=== PATIENT | male | born 1970 | race Caucasian/White ===

== ENCOUNTER 2022-08-24 17:17 | Emergency (ER) | payer MEDICARE, OTHER ==
[~2022-08-24] VITALS: Ht 170.2 cm; Wt 75.0 kg
[2022-08-24] MEDS ORDERED: METF-1211 PO (17:28)
[2022-08-24] MEDS ORDERED: GABA-1216 PO (17:28)
[2022-08-24] MEDS ORDERED: ASPI-1444 PO (18:59)
[2022-08-24] MEDS ORDERED: ATOR40TA71 PO (18:59)
[2022-08-24] MEDS ORDERED: IBUP-2077 PO (18:59)
[2022-08-24] MEDS ORDERED: LISI5TAB21 PO (18:59)
[2022-08-24] MEDS ORDERED: GABA-1181 PO (18:59)
[2022-08-24 21:19] LABS: BASOPHILS % (AUTO) 0.7 % (0.0-2.0); EOSINOPHILS % (AUTO) 2.5 % (1.0-6.0); HEMATOCRIT 41.9 % (41-53); HEMOGLOBIN 14.2 g/dL (13.5-17.5); LYMPHOCYTES # (AUTO) 3.5 K/uL (1.0-4.8); LYMPHOCYTES % (AUTO) 37.6 % (22.0-44.0); MEAN CORPUSCULAR HEMOGLOBIN 31.8 pg (26.0-34.0); MEAN CORPUSCULAR HGB CONC 33.9 G/dL (31.0-37.0); MEAN CORPUSCULAR VOLUME 94 fL (80-100); MONOCYTES # (AUTO) 0.6 K/uL (0.1-1.0); MONOCYTES % (AUTO) 6.7 % (2.0-9.0); NEUTROPHILS # (AUTO) 4.9 K/uL (1.8-7.7); NEUTROPHILS % (AUTO) 52.5 % (40.0-70.0); PLATELET COUNT (AUTO) 293 K/uL (150-450); RED BLOOD CELL COUNT(AUTO) 4.48 MIL/uL (4.50-5.90); RED CELL DISTRIBUTION WIDTH 12.9 % (11.5-14.5)
[2022-08-24] MEDS ORDERED: MORPHINE SULFATE 4 MG/ML SYRINGE IVP ONE (21:30)
[2022-08-24 21:31] LABS: ANION GAP 6 mmol/L (8-16); CALCIUM, TOTAL 9.3 mg/dL (8.8-10.5); CARBON DIOXIDE 29 mmol/L (22-29); CHLORIDE 99 mmol/L (98-107); CREATININE 1.15 mg/dL (0.60-1.30); GLUCOSE,RANDOM 259 mg/dL (70-110); POTASSIUM 4.6 mmol/L (3.5-5.1); SODIUM SERUM 134 mmol/L (136-145); UREA NITROGEN, BLOOD 17 mg/dL (7-18)
[2022-08-24 21:32] LABS: GLOMERULAR FILTR. RATE CALC > 60 mL/min (>60)
[2022-08-24 21:37] LABS: ALANINE AMINOTRANSFERASE 20 U/L (12-78); ALBUMIN 3.8 g/dL (3.4-5.0); ALKALINE PHOSPHATASE 95 U/L (46-116); ASPARTATE AMINOTRANSFERASE 12 U/L (15-37); BILIRUBIN,TOTAL 0.4 mg/dL (0.1-1.0); LIPASE 326 U/L (73-393); TOTAL PROTEIN, SERUM 7.1 g/dL (6.4-8.2)
[2022-08-24] MEDS ORDERED: IOHEXOL 350 MG/ML 100 ML VIAL ONE (21:45)
[2022-08-24] MEDS ORDERED: SODIUM CHLORIDE 0.9% 100 ML ONE (21:45)
[2022-08-25 00:44] VITALS: BP 146/78
[2022-08-25] MEDS ORDERED: BISMUTH SUBSALICYLATE 525 MG/30 ML SUSPENSION UDCUP PO ONE (00:45)
[2022-08-25 00:54] LABS: APPEARANCE,URINE CLEAR (CLEAR); BILIRUBIN,URINE NEGATIVE (NEGATIVE); GLUCOSE, URINE (UA) >=1000 mg/dL (NEGATIVE); KETONES,URINE NEGATIVE (NEGATIVE); LEUKOCYTE ESTERASE ,URINE NEGATIVE (NEGATIVE); NITRATE,URINE NEGATIVE (NEGATIVE); OCCULT BLOOD,URINE NEGATIVE (NEGATIVE); PROTEIN,URINE NEGATIVE (NEGATIVE); UROBILINOGEN,URINE <=1.0 mg/dL (<=1.0)
[2022-08-25 01:00] LABS: BACTERIA,URINE None Seen /HPF (None Seen); RBC,URINE None Seen /HPF (0-2); SQUAMOUS EPITHELIAL CELL,UR None Seen /LPF (None Seen); WBC,URINE None Seen /HPF (0-5)
== END 2022-08-25 02:39 | disposition home or self-care (01) ==
LOC: EMS 17:25
DX: R10.31 Right lower quadrant pain (principal); K52.9 Noninfective gastroenteritis and colitis, unspecified; E11.9 Type 2 diabetes mellitus without complications; E78.00 Pure hypercholesterolemia, unspecified; F10.20 Alcohol dependence, uncomplicated; F17.210 Nicotine dependence, cigarettes, uncomplicated; I10 Essential (primary) hypertension; K59.00 Constipation, unspecified; Z98.890 Other specified postprocedural states
CPT/HCPCS: 99285; 74177; 96374; 80053; 81001; 82962; 83690; 85025; 36415; J2270; Q9967; J7050

== ENCOUNTER 2024-04-06 15:46 | Emergency (ER) | payer OTHER, MEDICAID ==
[~2024-04-06] VITALS: Ht 170.2 cm; Wt 78.6 kg
[~2024-04-06 15:46] MED LIST: ASPI-1444 PO; ATOR40TA71 PO; GABA-1181 PO; IBUP-2077 PO; LISI5TAB21 PO; METF-1211 PO
[2024-04-06 15:56] VITALS: TEMP 98.2
[2024-04-06] MEDS: IBUPROFEN 600 MG TABLET PO ONE (16:45)
[2024-04-06] MEDS ORDERED: IBUP-1506 PO (17:33)
[2024-04-06 17:35] VITALS: BP 115/61; PULSE 97; RESP 18
== END 2024-04-06 17:55 | disposition left against medical advice (07) ==
LOC: EMS 15:46
DX: S46.812A Strain of other muscles, fascia and tendons at shoulder and upper arm level, left arm, initial encounter (principal); Z13.1 Encounter for screening for diabetes mellitus; I10 Essential (primary) hypertension; E78.5 Hyperlipidemia, unspecified; F17.210 Nicotine dependence, cigarettes, uncomplicated; V89.2XXA Person injured in unspecified motor-vehicle accident, traffic, initial encounter; Y93.89 Activity, other specified; Y92.89 Other specified places as the place of occurrence of the external cause; Y99.8 Other external cause status
CPT/HCPCS: 82962; 99284; 73030-TC; 73060-TC; Z7502; Z7610

== ENCOUNTER 2024-12-24 13:41 | Emergency (ER) | payer MEDICAID ==
[~2024-12-24] VITALS: Ht 170.2 cm; Wt 79.0 kg
[~2024-12-24 13:41] MED LIST changes: +IBUP-1506 PO
[2024-12-24 14:00] VITALS: BP 141/87; PULSE 88; RESP 18; TEMP 98.5; O2SAT 99
[2024-12-24] MEDS ORDERED: AMOX-457 PO (14:51)
[2024-12-24] MEDS: PERTUSS(ACELL),DIPH,TET/PF 0.5 ML SYRINGE [ADULT] IM. ONE (14:53)
[2024-12-24] MEDS: CLINDAMYCIN PHOS 150 MG/ML 4 ML VIAL IM ONE (15:10)
== END 2024-12-24 15:17 | disposition home or self-care (01) ==
LOC: EDUNIT# 13:41 → EMS 13:45
DX: L03.011 Cellulitis of right finger (principal); E78.00 Pure hypercholesterolemia, unspecified; E11.9 Type 2 diabetes mellitus without complications; I10 Essential (primary) hypertension; F17.210 Nicotine dependence, cigarettes, uncomplicated; Z79.899 Other long term (current) drug therapy; Z79.82 Long term (current) use of aspirin; Z72.89 Other problems related to lifestyle
CPT/HCPCS: 99284; 90715; 90471; 96372; J3490